=== PATIENT | female | born 1960 | race Caucasian/White ===

== ENCOUNTER 2017-12-07 15:08 | Emergency (ER) | payer OTHER ==
[~2017-12-07] VITALS: Ht 160 cm; Wt 94.3 kg
[2017-12-07 15:23] VITALS: Ht 160 cm; Wt 94.3 kg
[2017-12-07 19:03] VITALS: BP 111/64
== END 2017-12-07 19:03 | disposition home or self-care (01) ==
LOC: ED 15:08
DX: R10.13 Epigastric pain (principal); R11.2 Nausea with vomiting, unspecified
CPT/HCPCS: Q0162

== ENCOUNTER → 2019-09-04 | Outpatient (CLI) | payer OTHER | END | disposition home or self-care (01) | LOC: CA 11:39 → RD 11:39 | DX: Z01.818 Encounter for other preprocedural examination (principal) ==